=== PATIENT | male | born 1960 | race Caucasian/White ===

== ENCOUNTER 2018-03-21 14:30 | Emergency (ER) | payer MEDICARE, MEDICAID ==
[~2018-03-21] VITALS: Ht 180.3 cm; Wt 94.1 kg
[2018-03-21 14:53] VITALS: BP 168/96
--- NOTE | 2018-03-21 15:08 | NUR ---
PT OUT TO XRAY WITH SKI EDGE PAINTER VIA WHEELCHAIR
--- NOTE | 2018-03-21 15:18 | NUR ---
PT RETURNS FROM XRAY
== END 2018-03-21 16:01 | disposition home or self-care (01) ==
LOC: ER 14:32
DX: M25.561 Pain in right knee (principal); W18.30XA Fall on same level, unspecified, initial encounter; Y93.89 Activity, other specified; Y92.89 Other specified places as the place of occurrence of the external cause; Y99.8 Other external cause status
CPT/HCPCS: 29505; 73564; 99284

== ENCOUNTER 2023-01-26 23:51 | Emergency (ER) | payer BC, MEDICAID ==
[~2023-01-26] VITALS: Ht 180.3 cm; Wt 90.9 kg
[2023-01-27] MEDS ORDERED: ibuprofen tablet 400 MG TABLET PO ONE (00:20)
[2023-01-27] MEDS ORDERED: acetaminophen 325mg tablet PO ONE (00:20)
[2023-01-27 01:30] VITALS: BP 209/108; PULSE 68; RESP 16; TEMP 97.9; O2SAT 98
== END 2023-01-27 01:39 | disposition home or self-care (01) ==
LOC: ER 23:51
DX: S22.32XA Fracture of one rib, left side, initial encounter for closed fracture (principal); W10.8XXA Fall (on) (from) other stairs and steps, initial encounter; Y93.89 Activity, other specified; Y92.89 Other specified places as the place of occurrence of the external cause; Y99.8 Other external cause status
CPT/HCPCS: 71100; 93005; 99284

== ENCOUNTER 2024-05-02 14:40 | Inpatient (IN) | payer BC, MEDICAID ==
[~2024-05-02] VITALS: Ht 180.3 cm; Wt 88.0 kg
[~2024-05-02 14:40] MED LIST: AMLO5TAB4 PO; ASPI-611 PO; ATOR20TA12 PO; CARB-212 PO; DIVA500T2 PO; HYDR25TA5 PO; LOSA50TA64 PO; OMEP20CA16 PO
[2024-05-02 15:59] LABS: BASOPHILS % (AUTO) 0.3 % (0-1); EOSINOPHILS % (AUTO) 0.4 % (0-6); HEMATOCRIT 36.7 % (42.0-52.0); LYMPHOCYTES # (AUTO) 0.6 X10'3 (1.1-4.8); MEAN CORPUSCULAR HEMOGLOBIN 32.1 PG (27.0-31.0); MEAN CORPUSCULAR HGB CONC 32.7 g/dL (33.0-36.5); MEAN CORPUSCULAR VOLUME 98.1 FL (78-98); MEAN PLATELET VOLUME 7.6 FL (7.4-10.4); MONOCYTES # (AUTO) 0.3 X10'3 (0-0.9); NEUTROPHILS # (AUTO) 4.6 X10'3 (1.8-7.7); NEUTROPHILS % (AUTO) 83.3 % (42-75); PLATELET COUNT 108 X10'3 (140-440); RED BLOOD COUNT 3.74 X10'6 (4.70-6.10); RED CELL DISTRIBUTION WIDTH 14.4 % (11.5-14.5); WHITE BLOOD COUNT 5.5 X10'3 (4.5-11.0)
[2024-05-02 16:16] LABS: ALANINE AMINOTRANSFERASE 18 U/L (12-78); ALBUMIN 3.3 G/DL (3.4-5.0); ALBUMIN/GLOBULIN RATIO 0.8 (1.1-1.5); ALKALINE PHOSPHATASE 91 IU/L (46-116); ANION GAP 13 (8-16); ASPARTATE AMINO TRANSFERASE 14 U/L (10-37); BILIRUBIN,TOTAL 0.4 MG/DL (0.1-1.0); BLOOD UREA NITROGEN 49 MG/DL (7-18); BUN/CREATININE RATIO 32.2 (10.0-20.0); CALCIUM 8.5 MG/DL (8.5-10.1); CHLORIDE 112 MMOL/L (99-107); CREATININE 1.52 MG/DL (0.60-1.10); GLUCOSE 227 MG/DL (70-104); POTASSIUM 4.5 MMOL/L (3.5-5.1); SODIUM 146 MMOL/L (135-145); TOTAL CARBON DIOXIDE 21.2 MMOL/L (24-32); TOTAL PROTEIN 7.4 G/DL (6.4-8.2); eCRCL 53 ML/MIN; eGFR 46 ML/MIN
[2024-05-02 16:19] LABS: CARBAMAZEPINE (TEGRETOL) 13.1 UG/ML (4.0-12.0); ETHANOL < 10 MG/DL (<10); VALPROATE 74 UG/ML (50-100)
[2024-05-02] MEDS: normal saline 1000ml 1,000 ML IV ONE (16:24)
[2024-05-02] MEDS: labetalol 20mg/4ml (5mg/ml) syringe IV ONE (16:25)
[2024-05-02 16:32] LABS: BILIRUBIN,URINE NEGATIVE (Neg); CLARITY,URINE CLEAR (Clear); COLOR,URINE YELLOW (Yellow); GLUCOSE, URINE 250 mg/dl (Neg); KETONES,URINE NEGATIVE (Neg); LEUKOCYTE ESTERASE ,URINE NEGATIVE (Neg); NITRITES, URINE NEGATIVE (Neg); OCCULT BLOOD,URINE SMALL (Neg); PH,URINE 5.5 (4.8-8.0); PROTEIN,URINE 100 mg/dl (Neg); UROBILINOGEN,URINE 0.2 E.U/dL (0.2-1.0)
[2024-05-02 16:38] LABS: BACTERIA,URINE NONE SEEN /HPF (Neg); MUCUS STRANDS NONE SEEN /LPF (Neg); SQUAMOUS EPITHELIAL CELL,UR NONE SEEN /LPF (FEW); UA COLLECTION TYPE NON-SPECIFIED; WBC,URINE NONE SEEN /HPF (0-4)
[2024-05-02 16:45] LABS: URINE AMPHETAMINE SCREEN NEGATIVE (Neg); URINE BARBITUATE SCREEN NEGATIVE (Neg); URINE BENZODIAZEPINES SCREEN NEGATIVE (Neg); URINE CANNABINOID SCREEN NEGATIVE (Neg); URINE COCAINE SCREEN NEGATIVE (Neg); URINE METHADONE SCREEN NEGATIVE (Neg); URINE OPIATE SCREEN NEGATIVE (Neg); URINE PHENCYCLIDINE SCREEN NEGATIVE (Neg)
[2024-05-02] MEDS: hydrALAZINE 20mg/ml inj. IV ONE (17:20)
[2024-05-02] MEDS: cloNIDine 0.1 mg tablet PO ONE (17:51)
[2024-05-02] MEDS ORDERED: magnesium hydroxide 30ml (MOM) UD suspension PO PRN (18:40)
[2024-05-02] MEDS ORDERED: diphenhydrAMINE 50 mg/ml inj IV PRN (18:40)
[2024-05-02] MEDS ORDERED: acetaminophen 325mg tablet PO PRN (18:40)
[2024-05-02] MEDS ORDERED: mag hydrox/Alum hydrox/simeth 30ml oral suspension PO PRN (18:40)
[2024-05-02] MEDS ORDERED: potassium Cl 40MEQ/1/2NS 520ml 520 ML IV PRN (18:40)
[2024-05-02] MEDS ORDERED: magnesium sulf-water 2g/50mL 50 ML IV PRN (18:40)
[2024-05-02] MEDS ORDERED: diphenhydrAMINE 25mg capsule PO PRN (18:40)
[2024-05-02] MEDS ORDERED: potassium Cl 20 mEq SR tablet PO PRN ×2 (18:40)
[2024-05-02] MEDS ORDERED: magnesium sulf-water 4G/100mL 100 ML IV PRN (18:40)
[2024-05-02] MEDS ORDERED: DEXTROSE 15 GM of carb/4 tabs (each vial/BOTTLE has 4 tablets) PO PRN ×2 (18:45)
[2024-05-02] MEDS ORDERED: glucagon, human recombinant 1mg kit SUBCUT PRN (18:45)
[2024-05-02] MEDS ORDERED: dextrose 50%-water 50ml dispensing syringe IV PRN ×2 (18:45)
[2024-05-02] MEDS: HYDROcodone/acetaminophen 10/325mg tab PO PRN (19:17)
[2024-05-02] MEDS: ondansetron/PF 4mg/2ml inj IV PRN (19:17)
[2024-05-02] MEDS: HYDROchlorothiazide 25mg tablet PO ONE (19:18)
[2024-05-02] MEDS: hydrALAZINE 20mg/ml inj. IV STA (19:18)
[2024-05-02] MEDS: amLODIPine 5mg tablet PO STA (19:31)
[2024-05-02] MEDS: losartan 50mg tablet PO STA (19:31)
[2024-05-02] MEDS: PERFLUTREN PROTEIN-A MICROSPHR (Optison) 0.22 MG/ML 3ML VIAL IV ONE (19:40)
[2024-05-02] MEDS: K and/or MAG REPLACEMENT MC SCH (19:41)
[2024-05-02] MEDS: docusate sod 100mg capsule PO SCH (20:00)
[2024-05-02 20:18] LABS: OSMOLALITY UA 677 MOSM/K (50-1400)
[2024-05-02 20:27] LABS: SODIUM,URINE RANDOM 87 MEQ/L
[2024-05-02] MEDS: pantoprazole 40 MG vial IV SCH (22:29)
[2024-05-02] MEDS: aspirin 81mg, enteric-coated 1 TAB TABLET.DR PO ONE (22:29)
[2024-05-02] MEDS: INSULIN LISPRO 100 UNIT/ML INSULN.PEN MULTI-DOSE SQ SCH (22:32)
[2024-05-02] MEDS ORDERED: CLON-850 PO (22:39)
[2024-05-03] VITALS (11 sets, daily range): BP systolic 126–180; BP diastolic 62–80; PULSE 54–72; RESP 12–19; TEMP 97–97.7; O2SAT 97–100
[2024-05-03] MEDS: hyDRALAzine 10mg tablet PO SCH
[2024-05-03] MEDS: HYDROcodone/acetaminophen 5mg/325mg tablet PO PRN (02:01)
[2024-05-03] MEDS ORDERED: DIVA500T2 PO (02:05)
[2024-05-03] MEDS ORDERED: CARB-212 PO (02:53)
[2024-05-03] MEDS ORDERED: carBAMazepine 100mg chewable tablet PO SCH (03:06)
[2024-05-03] MEDS: clonazePAM 0.5mg tablet PO SCH (03:47)
[2024-05-03] MEDS: divalproex sodium 500mg tablet.DR PO SCH ×2 (03:48→09:17)
[2024-05-03] MEDS: carBAMazepine 100mg chewable tablet PO SCH (03:49)
[2024-05-03] MEDS: divalproex sodium 500mg tablet.DR PO ONE (03:49)
[2024-05-03 06:25] LABS: BASOPHILS % (AUTO) 0.1 % (0-1); EOSINOPHILS % (AUTO) 0.3 % (0-6); HEMATOCRIT 29.3 % (42.0-52.0); HEMOGLOBIN 9.6 g/dl (14.0-17.9); LYMPHOCYTES # (AUTO) 0.9 X10'3 (1.1-4.8); LYMPHOCYTES % (AUTO) 30.5 % (21-51); MEAN CORPUSCULAR HEMOGLOBIN 32.3 PG (27.0-31.0); MEAN CORPUSCULAR HGB CONC 32.9 g/dL (33.0-36.5); MEAN CORPUSCULAR VOLUME 98.2 FL (78-98); MEAN PLATELET VOLUME 8.2 FL (7.4-10.4); MONOCYTES # (AUTO) 0.2 X10'3 (0-0.9); MONOCYTES % (AUTO) 6.9 % (2-12); NEUTROPHILS # (AUTO) 1.9 X10'3 (1.8-7.7); NEUTROPHILS % (AUTO) 62.2 % (42-75); PLATELET COUNT 81 X10'3 (140-440); RED BLOOD COUNT 2.98 X10'6 (4.70-6.10)
[2024-05-03 06:45] LABS: HEMOGLOBIN A1C 6.5 % (4.5-6.2)
[2024-05-03 06:57] LABS: ALANINE AMINOTRANSFERASE 18 U/L (12-78); ALBUMIN 2.5 G/DL (3.4-5.0); ALBUMIN/GLOBULIN RATIO 0.8 (1.1-1.5); ALKALINE PHOSPHATASE 70 IU/L (46-116); ANION GAP 10 (8-16); ASPARTATE AMINO TRANSFERASE 14 U/L (10-37); BILIRUBIN,TOTAL 0.3 MG/DL (0.1-1.0); BLOOD UREA NITROGEN 50 MG/DL (7-18); BUN/CREATININE RATIO 26.6 (10.0-20.0); CALCIUM 8.1 MG/DL (8.5-10.1); CHLORIDE 114 MMOL/L (99-107); CHOL/HDL RATIO 2.9 (0.00-4.99); CHOLESTEROL 152 MG/DL (0-200); CREATININE 1.88 MG/DL (0.60-1.10); GLUCOSE 167 MG/DL (70-104); HDL CHOLESTEROL 52 MG/DL (35-60); LDL CHOLESTEROL 71 MG/DL (50-100); MAGNESIUM 2.1 MG/DL (1.5-2.4); POTASSIUM 5.4 MMOL/L (3.5-5.1); PRO BRAIN NATRIURETIC PEPTIDE 1680 PG/ML (0-125); SODIUM 146 MMOL/L (135-145); THYROID STIMULATING HORMONE 1.89 ulU/ml (0.34-4.50); TOTAL CARBON DIOXIDE 21.7 MMOL/L (24-32); TOTAL PROTEIN 5.8 G/DL (6.4-8.2); TRIGLYCERIDES 115 MG/DL (20-135); eCRCL 42 ML/MIN; eGFR 36 ML/MIN
[2024-05-03] MEDS: aspirin 81mg, enteric-coated 1 TAB TABLET.DR PO SCH ×2 (08:00→09:14)
[2024-05-03] MEDS ORDERED: losartan 50mg tablet PO SCH (08:00)
[2024-05-03] MEDS ORDERED: glucagon, human recombinant 1mg kit SUBCUT PRN (08:05)
[2024-05-03] MEDS ORDERED: DEXTROSE 15 GM of carb/4 tabs (each vial/BOTTLE has 4 tablets) PO PRN ×2 (08:05)
[2024-05-03] MEDS ORDERED: dextrose 50%-water 50ml dispensing syringe IV PRN ×2 (08:05)
[2024-05-03] MEDS: losartan 50mg tablet PO SCH (09:15)
[2024-05-03] MEDS: amLODIPine 5mg tablet PO SCH (09:17)
[2024-05-03 11:23] LABS: RED BLOOD COUNT 3.03 X10'6 (4.70-6.10); RETICULOCYTE % (AUTO) 0.8 % (0.5-1.5)
[2024-05-03] MEDS ORDERED: INSULIN LISPRO 100 UNIT/ML INSULN.PEN MULTI-DOSE SQ SCH (12:00)
[2024-05-03] MEDS: ringers solution, lacted 1,000 ML IV SCH (12:26)
[2024-05-03] MEDS: acetaminophen 325mg tablet PO PRN (12:27)
[2024-05-04] VITALS (7 sets, daily range): BP systolic 122–187; BP diastolic 72–92; PULSE 66–78; RESP 12–17; TEMP 97.4–97.8; O2SAT 94–99
[2024-05-04] MEDS: HYDROchlorothiazide 25mg tablet PO SCH (04:17)
[2024-05-04 06:16] LABS: BASOPHILS % (AUTO) 0.3 % (0-1); EOSINOPHILS # (AUTO) 0.1 X10'3 (0-0.9); EOSINOPHILS % (AUTO) 2.6 % (0-6); HEMATOCRIT 27.8 % (42.0-52.0); HEMOGLOBIN 9.3 g/dl (14.0-17.9); LYMPHOCYTES # (AUTO) 1.1 X10'3 (1.1-4.8); LYMPHOCYTES % (AUTO) 33.8 % (21-51); MEAN CORPUSCULAR HEMOGLOBIN 32.6 PG (27.0-31.0); MEAN CORPUSCULAR HGB CONC 33.6 g/dL (33.0-36.5); MEAN CORPUSCULAR VOLUME 97.2 FL (78-98); MEAN PLATELET VOLUME 8.3 FL (7.4-10.4); MONOCYTES # (AUTO) 0.2 X10'3 (0-0.9); MONOCYTES % (AUTO) 6.7 % (2-12); NEUTROPHILS # (AUTO) 1.8 X10'3 (1.8-7.7); NEUTROPHILS % (AUTO) 56.6 % (42-75); PLATELET COUNT 80 X10'3 (140-440); RED BLOOD COUNT 2.86 X10'6 (4.70-6.10); RED CELL DISTRIBUTION WIDTH 14.6 % (11.5-14.5); WHITE BLOOD COUNT 3.2 X10'3 (4.5-11.0)
[2024-05-04 06:25] LABS: ALANINE AMINOTRANSFERASE 11 U/L (12-78); ALBUMIN 2.5 G/DL (3.4-5.0); ALBUMIN/GLOBULIN RATIO 0.8 (1.1-1.5); ALKALINE PHOSPHATASE 66 IU/L (46-116); ANION GAP 8 (8-16); ASPARTATE AMINO TRANSFERASE 17 U/L (10-37); BILIRUBIN,TOTAL 0.3 MG/DL (0.1-1.0); BLOOD UREA NITROGEN 52 MG/DL (7-18); BUN/CREATININE RATIO 28.7 (10.0-20.0); CALCIUM 7.9 MG/DL (8.5-10.1); CHLORIDE 113 MMOL/L (99-107); CREATININE 1.81 MG/DL (0.60-1.10); GLUCOSE 108 MG/DL (70-104); MAGNESIUM 1.9 MG/DL (1.5-2.4); POTASSIUM 5.5 MMOL/L (3.5-5.1); SODIUM 142 MMOL/L (135-145); TOTAL CARBON DIOXIDE 20.7 MMOL/L (24-32); TOTAL PROTEIN 5.6 G/DL (6.4-8.2); eCRCL 43 ML/MIN; eGFR 38 ML/MIN
[2024-05-04] MEDS ORDERED: HYDROchlorothiazide 25mg tablet PO STA (08:31)
[2024-05-04] MEDS: HYDROchlorothiazide 25mg tablet PO STA (10:55)
[2024-05-04] MEDS: isosorbide mononitrate 30mg tab.SR.24H PO STA (10:56)
[2024-05-04] MEDS: dextrose 50%-water 50ml dispensing syringe IV ONE ×2 (10:56→12:34)
[2024-05-04] MEDS: INSULIN LISPRO 100 UNIT/ML INSULN.PEN MULTI-DOSE SQ ONE (10:57)
[2024-05-04] MEDS: insulin regular, human 10 units/0.1 ml syringe IV ONE (12:35)
[2024-05-04] MEDS ORDERED: hyDRALAzine 10mg tablet PO SCH (16:00)
[2024-05-04] MEDS: hyDRALAzine 10mg tablet PO SCH (17:04)
[2024-05-04] MEDS ORDERED: HYDR25TA4 PO (17:24)
[2024-05-04] MEDS ORDERED: ISOS30TA84 PO (17:24)
[2024-05-04] MEDS ORDERED: hyDRALAzine tablet PO (17:24)
[2024-05-04] MEDS ORDERED: SITA50TA7 PO (19:10)
[2024-05-04] MEDS ORDERED: ATOR10TA87 PO (19:10)
[2024-05-04] MEDS ORDERED: EMPA10TA PO (19:10)
[2024-05-04] MEDS ORDERED: divalproex sod 125mg tablet.DR PO SCH (20:00)
[2024-05-05] MEDS ORDERED: HYDROchlorothiazide 25mg tablet PO SCH (08:00)
[2024-05-05] MEDS ORDERED: isosorbide mononitrate 30mg tab.SR.24H PO SCH (08:00)
== END 2024-05-04 20:40 | disposition home health service (06) | DRG 304 ==
LOC: ER 14:40 → ED HOLD 18:42 → PCU 3S 05-03 00:35
PROVIDERS: ADMIT Nurse Practitioner Family; ATTEND Nurse Practitioner Family
PROC: 4A10X4Z Monitoring of Central Nervous Electrical Activity, External Approach (ICD-10-PCS; principal; 2024-05-03)
DX: I16.1 Hypertensive emergency (principal); G93.41 Metabolic encephalopathy; N17.0 Acute kidney failure with tubular necrosis; E87.0 Hyperosmolality and hypernatremia; I50.32 Chronic diastolic (congestive) heart failure; I69.351 Hemiplegia and hemiparesis following cerebral infarction affecting right dominant side; E87.5 Hyperkalemia; I44.7 Left bundle-branch block, unspecified; Z66 Do not resuscitate; N18.30 Chronic kidney disease, stage 3 unspecified; I13.0 Hypertensive heart and chronic kidney disease with heart failure and stage 1 through stage 4 chronic kidney disease, or unspecified chronic kidney disease; T68.XXXA Hypothermia, initial encounter; G40.909 Epilepsy, unspecified, not intractable, without status epilepticus; E11.65 Type 2 diabetes mellitus with hyperglycemia; E11.22 Type 2 diabetes mellitus with diabetic chronic kidney disease; Z91.148 Patient's other noncompliance with medication regimen for other reason; Z79.84 Long term (current) use of oral hypoglycemic drugs; Z79.899 Other long term (current) drug therapy; X31.XXXA Exposure to excessive natural cold, initial encounter
CPT/HCPCS: 36415; 70450; 71045; 80053; 80061; 80156; 80164; 80177; 80305; 80320; 81001; 82140; 82948; 83036; 83735; 83880; 83935; 84132; 84300; 84443; 84484; 85025; 85045; 87081; 93005; 93306; 95816; 96361; 96374; 96375; 96376; 97116; 97162; 97530; 99285; C1758; G0378; J0360; J1815; J2405; J2470; J3490; J7030; J7120